=== PATIENT | male | born 1985 | race Two or more races ===

== ENCOUNTER 2018-11-22 12:09 | Emergency (ER) | payer OTHER ==
[2018-11-22 12:21] VITALS: BP 127/72; PULSE 85; TEMP 98.1; BMI 31.2
--- NOTE | 2018-11-22 12:55 | PDOC ---
History of Present Illness - General Chief Complaint: Respiratory Stated Complaint: FEVER, HEADACHE , SOB Time Seen by Provider: 11/22/18 12:21 History Source: Patient Exam Limitations: No Limitations - History of Present Illness Associated Symptoms: reports: cough, fever/chills, headache. denies: chest pain /soreness, dizziness, earache, facial pain, lightheadedness, muscle aches, nasal congestion, nasal drainage, sore throat Past History - Travel Traveled outside of the country in the last 30 days: No Close contact w/someone who was outside of country & ill: No - Past Medical History Allergies/Adverse Reactions: Allergies Allergy/AdvReac Type Severity Reaction Status Date / Time venom-honey bee Allergy Intermediate Swelling Verified 11/22/18 12:20 [bee venom (honey bee)] venom-wasp [Wasp Venom] Allergy Intermediate Swelling Verified 11/22/18 12:20 Home Medications: Ambulatory Orders Hydroxyzine HCl 25 mg PO TID #20 tablet 11/25/11 Diazepam [Valium] 5 mg PO BID #14 tablet 05/31/12 Naproxen [Naprosyn] 500 mg PO BID #30 tablet 05/31/12 Benzonatate [Tessalon Pearls -] 100 mg PO TID #21 capsule 11/22/18 Naproxen 375 mg PO BID 10 Days #20 tablet 11/22/18 Asthma: Yes COPD: No - Suicide/Smoking/Psychosocial Hx Smoking Status: Yes Smoking History: Unknown if ever smoked Have you smoked in the past 12 months: No Number of Cigarettes Smoked Daily: 3 Information on smoking cessation initiated: No Hx Alcohol Use: No Drug/Substance Use Hx: No Review of Systems - Review of Systems Able to Perform ROS?: Yes Is the patient limited Malagasy proficient: No Constitutional: Yes: Chills, Fever Respiratory: Yes: Cough, Shortness of Breath. No: Orthopnea, Stridor, Wheezing , Productive cough Cardiac (ROS): No: Chest Pain, Lightheadedness, Palpitations Musculoskeletal: No: Back Pain Neurological: Yes: Headache. No: Numbness, Paresthesia, Tingling, Weakness, Ataxia, Dizziness Endocrine: No: Excessive Sweating *Physical Exam - Vital Signs Last Vital Signs Temp Pulse Resp BP Pulse Ox 98.1 F 85 16 127/72 100 11/22/18 12:19 11/22/18 12:19 11/22/18 12:19 11/22/18 12:19 11/22/18 12:19 - Physical Exam General Appearance: Yes: Nourished HEENT: positive: EOMI, EDITH Neck: positive: Supple Respiratory/Chest: positive: Lungs Clear, Normal Breath Sounds, Other (+ tenderness when sternum is palpated) Cardiovascular: positive: Regular Rhythm, Regular Rate, S1, S2 Musculoskeletal: positive: Normal Inspection Integumentary: positive: Normal Color 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 NML intact, Fully Oriented, Alert, Normal Mood/ Affect, Normal Response, Motor Strength 09/02 ED Treatment Course - RADIOLOGY Radiology Studies Ordered: Category Date Time Status CHEST PA & LAT [RAD] Stat Radiology 11/22/18 12:51 Ordered Medical Decision Making - Medical Decision Making 11/22/18 12:54 33y/o M with cough, chills, ROBBINS and pain during inspiration X 1 wk pt denies chest pain, h/o smoking,palpitation + recent travel from [facility] 3 weeks ago denies recent procedure CXR neg perc negative pt reexamined, + sternal tenderness suspect costochondirits toradol given will reassess pt reassessed after saline nebs and toradol felt much better *DC/Admit/Observation/Transfer Diagnosis at time of Disposition: Costochondritis, acute - Discharge Dispostion Disposition: HOME Condition at time of disposition: Stable Decision to Admit order: No - Prescriptions Prescriptions: Benzonatate [Tessalon Pearls -] 100 mg PO TID #21 capsule Naproxen 375 mg PO BID 10 Days #20 tablet - Referrals - Patient Instructions Printed Discharge Instructions: DI for Costochondritis Additional Instructions: Your chest xray was negative for pneumonia today please take medication as prescribed follow up with your primary care doctor return to the ER If worsening symptoms occurs - Post Discharge Activity
[2018-11-22] MEDS ORDERED: KETOROLAC TROMETHAMINE 60 MG/2 ML VIAL IM ONE (13:09)
[2018-11-22] MEDS ORDERED: SODIUM CHLORIDE FOR INHALATION 3 ML VIAL.NEB IH ONE (13:09)
[2018-11-22] MEDS ORDERED: KETOROLAC TROMETHAMINE 60 MG/2 ML VIAL ONE (13:16)
== END 2018-11-22 14:15 | disposition home or self-care (01) ==
LOC: JERFT 12:09
PROC: 3E0333Z Introduction of Anti-inflammatory into Peripheral Vein, Percutaneous Approach (ICD-10-PCS; principal; 2018-11-22)
PROC: 3E0F7GC Introduction of Other Therapeutic Substance into Respiratory Tract, Via Natural or Artificial Opening (ICD-10-PCS; 2018-11-22)
DX: M94.0 Chondrocostal junction syndrome [Tietze] (principal)
CPT/HCPCS: 71046-TC-FY; 87804; 99281-25